=== PATIENT | female | born 1940 | race Caucasian/White ===

== ENCOUNTER 2024-02-28 12:42 | Emergency (ER) | payer OTHER ==
[~2024-02-28] VITALS: Ht 152.4 cm; Wt 55.6 kg
[2024-02-28 12:50] VITALS: PULSE 66; RESP 16; TEMP 98.7; O2SAT 98
[2024-02-28] MEDS ORDERED: METOPROLOL TART25 MG PO (13:16)
[2024-02-28] MEDS ORDERED: JARDIANCE25 MG (13:16)
[2024-02-28] MEDS ORDERED: JANUMET 50-1,01 EACH (13:16)
[2024-02-28] MEDS ORDERED: WELCHOL625 MG PO (13:16)
[2024-02-28] MEDS ORDERED: AMIODARONE HCL200 MG PO (13:16)
[2024-02-28] MEDS ORDERED: MEMANTINE HCL10 MG (13:16)
[2024-02-28] MEDS ORDERED: LEXAPRO20 MG PO (13:16)
[2024-02-28] MEDS ORDERED: ATORVASTATIN CA10 MG PO (13:16)
== END 2024-02-28 13:48 | disposition home or self-care (01) ==
LOC: FSED 12:49
DX: E11.65 Type 2 diabetes mellitus with hyperglycemia (principal); F03.90 Unspecified dementia, unspecified severity, without behavioral disturbance, psychotic disturbance, mood disturbance, and anxiety; I10 Essential (primary) hypertension; E78.5 Hyperlipidemia, unspecified; J44.9 Chronic obstructive pulmonary disease, unspecified; I48.91 Unspecified atrial fibrillation; M54.9 Dorsalgia, unspecified; G89.29 Other chronic pain; Z95.5 Presence of coronary angioplasty implant and graft; F17.210 Nicotine dependence, cigarettes, uncomplicated
CPT/HCPCS: 36415; 81003; 82948; 99283

== ENCOUNTER 2024-05-15 08:18 | Emergency (ER) | payer OTHER ==
[~2024-05-15 08:18] MED LIST: AMIODARONE HCL200 MG PO; ATORVASTATIN CA10 MG PO; JANUMET 50-1,01 EACH; JARDIANCE25 MG; LEXAPRO20 MG PO; MEMANTINE HCL10 MG; METOPROLOL TART25 MG PO; WELCHOL625 MG PO
[2024-05-15 08:20] VITALS: PULSE 72; RESP 16; TEMP 98.1; O2SAT 95
[2024-05-15] MEDS ORDERED: ASPIRIN81 MG PO (09:23)
== END 2024-05-15 11:18 | disposition other institution (70) ==
LOC: FSED 08:32
DX: I61.5 Nontraumatic intracerebral hemorrhage, intraventricular (principal); W06.XXXA Fall from bed, initial encounter; Y92.89 Other specified places as the place of occurrence of the external cause; N39.0 Urinary tract infection, site not specified; F03.90 Unspecified dementia, unspecified severity, without behavioral disturbance, psychotic disturbance, mood disturbance, and anxiety; E11.65 Type 2 diabetes mellitus with hyperglycemia; I10 Essential (primary) hypertension; J44.9 Chronic obstructive pulmonary disease, unspecified; I48.91 Unspecified atrial fibrillation; E78.5 Hyperlipidemia, unspecified; M54.9 Dorsalgia, unspecified; G89.29 Other chronic pain; R94.31 Abnormal electrocardiogram [ECG] [EKG]
CPT/HCPCS: 70450; 72192; 80053; 81003; 84484; 85025; 93005; 99283; J0696